=== PATIENT | male | born 1965 ===

== ENCOUNTER 2021-10-27 15:08 | Outpatient (CLI) | payer BC, SELFPAY ==
[2021-10-27 16:17] LABS: Influenza A QL RT-PCR Negative (Negative); Influenza B QL RT-PCR Negative (Negative); SARS-CoV-2 RNA PCR Negative (Negative)
== END 2021-10-27 15:09 | disposition home or self-care (01) ==
LOC: CHSLAB 15:16
PROVIDERS: PCP Internal Medicine; Visit Provider Nurse Practitioner Family
DX: J06.9 Acute upper respiratory infection, unspecified (principal); R05.9 Cough, unspecified; R50.9 Fever, unspecified; Z20.822 Contact with and (suspected) exposure to COVID-19
CPT/HCPCS: 87502; C9803; U0003; U0005